=== PATIENT | female | born 1980 | race Caucasian/White ===

== ENCOUNTER 2019-09-09 18:54 | Inpatient (IN) | payer OTHER, SELFPAY ==
[~2019-09-09] VITALS: Ht 162.6 cm; Wt 50.0 kg
[2019-09-09 20:02] LABS: HEMATOCRIT 38.4 % (36.0-47.0); HEMOGLOBIN 12.6 g/dl (12.0-15.5); MEAN CORPUSCULAR HEMOGLOBIN 29.9 pg (27.0-33.0); MEAN CORPUSCULAR HGB CONC 32.8 g/dl (32.0-36.5); PLATELET COUNT, AUTOMATED 110 10^3/uL (150-450); RED BLOOD COUNT 4.22 10^6/uL (4.00-5.40); WHITE BLOOD COUNT 6.1 10^3/uL (4.0-10.0)
[2019-09-09 20:25] LABS: HCG, SERUM QUALITATIVE NEGATIVE (NEGATIVE)
[2019-09-09 20:37] LABS: ACETAMINOPHEN LEVEL < 2.0 UG/ML (10.0-30.0); ALBUMIN 4.2 GM/DL (3.2-5.2); ALT/SGPT 23 U/L (12-78); BILIRUBIN,DIRECT 0.2 MG/DL (0.0-0.2); BILIRUBIN,TOTAL 0.5 MG/DL (0.2-1.0); BLOOD UREA NITROGEN 17 MG/DL (7-18); CALCIUM LEVEL 9.4 MG/DL (8.5-10.1); CARBON DIOXIDE LEVEL 30 MEQ/L (21-32); CHLORIDE LEVEL 106 MEQ/L (98-107); CREATININE FOR GFR 0.77 MG/DL (0.55-1.30); ETHYL ALCOHOL (ETHANOL) < 0.003 % (0.000-0.010); GLOMERULAR FILTRATION RATE > 60.0 (>60); GLUCOSE, FASTING 97 MG/DL (70-100); POTASSIUM SERUM 3.7 MEQ/L (3.5-5.1); SALICYLATE LEVEL 4.4 MG/DL (5.0-30.0); SODIUM LEVEL 140 MEQ/L (136-145); TOTAL PROTEIN 7.5 GM/DL (6.4-8.2)
[2019-09-09 21:01] LABS: AMPHETAMINES LEVEL URINE NEGATIVE (NEGATIVE); BARBITURATES URINE NEGATIVE (NEGATIVE); BENZODIAZEPINES URINE NEGATIVE (NEGATIVE); CANNABINOIDS URINE POSITIVE (NEGATIVE); COCAINE METABOLITE URINE NEGATIVE (NEGATIVE); METHADONE URINE NEGATIVE (NEGATIVE); OPIATES URINE NEGATIVE (NEGATIVE); PHENCYCLIDINE URINE NEGATIVE (NEGATIVE)
[2019-09-09] MEDS ORDERED: MAALOX 30 ML SUSP *UDC PO PRN (22:00)
[2019-09-09] MEDS ORDERED: ACETAMINOPHEN TAB 650MG DOSE (2X325MG) PO PRN (22:00)
[2019-09-09] MEDS ORDERED: MOM 30ML SUSPENSION UDC PO PRN (22:00)
[2019-09-09 23:23] VITALS: BP 120/75
[2019-09-10] MEDS: PALIPERIDONE 3 MG ER TAB (INVEGA) PO SCH ×4 (08:28→23:55)
--- NOTE | 2019-09-10 14:36 | HPEPDOC ---
General Date of Admission September 09, 2019 at 21:55 Date of Service: September 10, 2019 Chief Complaint The patient is a 38-year-old female admitted with a reason for visit of Unspecified Psychotic Disorder. Source: Patient Exam Limitations: No limitations Timing/Duration: 24 hours Severity: Mild, Moderate History of Present Illness Patient is 38 years old female w past medical history of anxiety and depression, who was admitted in the hospital with depression. She denied any cardiovascular problem, breathing problem, GI problem or dysuria. She denies fever, chills, nausea, vomiting, shortness of breath, palpit ations, diarrhea or dysuria Home Medications No Active Prescriptions or Reported Meds Allergies Coded Allergies: No Known Allergies (Verified Allergy, Unknown, 09/09/19) Past Medical History Medical History Depression Family History Mother from alcoholism Social History * Smoker: current smoker Alcohol: Denies Drugs: denies A-FIB/CHADSVASC A-FIB History Current/History of A-Fib/PAF?: No Current PO Anticoag Therapy: No Review of Systems Constitutional: Denies: Chills Eyes: Denies: Pain, Vision change ENT: Denies: Head Aches Skin: Denies: Rash, Lesions Pulmonary: Denies: Dyspnea, Cough Cardiovascular: Denies: Chest Pain Gastrointestinal: Denies: Nausea, Vomiting Genitourinary: Denies: Dysuria, Frequency Endocrine: Denies: Polydipsia Musculoskeletal: Denies: Neck Pain Neurological: Denies: Weakness Psych: Reports: Depression Physical Examination General Exam: Positive: Alert Eye Exam: Positive: PERRLA ENT Exam: Positive: Atraumatic Neck Exam: Positive: Supple; Negative: JVD Chest Exam: Positive: Clear to auscultation Heart Exam: Positive: Rate Normal Telemetry: Positive: No significant arrhythmia Abdomen Exam: Positive: Normal bowel sounds Extremity Exam: Negative: Clubbing, Cyanosis Skin Exam: Positive: Nl turgor and temperature Neuro Exam: Positive: Normal Gait Psych Exam: Positive: Oriented x 3 Vital Signs Vital Signs Date Time Temp Pulse Resp B/P (MAP) Pulse Ox O2 Delivery O2 Flow Rate FiO2 09/10/19 08:54 Room Air 09/09/19 23:23 99.6 72 16 120/75 (90) 99 Laboratory Data Labs 24H Laboratory Tests 2 09/09/19 19:20: Urine Opiates Screen NEGATIVE, Urine Methadone Screen NEGATIVE, Urine Barbiturates Screen NEGATIVE, Urine Phencyclidine Screen NEGATIVE, Urine Amphetamines Screen NEGATIVE, Urine Benzodiazepines Screen NEGATIVE, Urine Cocaine Metabolite Screen NEGATIVE, Urine Cannabinoids Screen POSITIVEH 09/09/19 19:50: Nucleated Red Blood Cells % (auto) 0.0, Anion Gap 4L, Glomerular Filtration Rate > 60.0, Calcium Level 9.4, Total Bilirubin 0.5, Direct Bilirubin 0.2, Aspartate Amino Transf (AST/SGOT) 36, Alanine Aminotransferase (ALT/SGPT) 23, Alkaline Phosphatase 45, Total Protein 7.5, Albumin 4.2, Albumin/Globulin Ratio 1.3, Thyroid Stimulating Hormone (TSH) 1.020, Human Chorionic Gonadotropin, Qual NEGATIVE, Salicylates Level 4.4L, Acetaminophen Level < 2.0L, Ethyl Alcohol Level < 0.003 CBC/BMP Laboratory Tests 09/09/19 19:50 Assessment/Plan Patient is 38 years old female w past medical history of anxiety and depression, who was admitted in the hospital with depression. She denied any cardiovascular problem, breathing problem, GI problem or dysuria. She denies fever, chills, nausea, vomiting, shortness of breath, palpitations, diarrhea or dysuria Problems (1) Depression Status: Acute Problem Text: will defer treatment to psych team Plan / VTE VTE Prophylaxis Ordered?: No VTE Exclusion Mechanical Proph: Low Risk for VTE KASHIF SOTO DO September 10, 2019 14:36
[2019-09-10 16:37] VITALS: BP 125/69
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
[2019-09-10] MEDS: OLANZapine ORAL DISINTEGRATING TAB 5MG PO PRN (22:31)
[2019-09-11] MEDS: PALIPERIDONE 3 MG ER TAB (INVEGA) PO SCH ×2 (09:00→20:27)
--- NOTE | 2019-09-11 17:05 | MHIPNPDOC ---
[facility] Progress Note Progress Note DATE OF SERVICE: 09/11/19 HISTORY: HISTORY OF THE PRESENT ILLNESS: Patient is a 38 -year-old , female, who as per ED report: "Reason for Referral Pt was brought to the ED by police on a 9.41 after stating to police that she did not care if she did not wake up in the morning. Chief Complaint Pt states that the police brought her to the ED because "I talk too much & I make them uneasy." She states that "I was trying to go to multiple locations at the same time." She states "This reality is wrong. It's like a game show or a talk show. I need to get back to the right reality." When asked if she has SI she states that she wants to be "the fireworks or the clouds." She states that she does not care if she does not wake up. When asked about whether or not she had a plan to kill herself she stated that she has thought about trying to stab herself or cut herself. She states that she does not remember whether or not she has ever attempted suicide. She states that she self-harms by picking at her skin. Pt denies HI. She denies both AH & VH, but several times states "Lots of people tell me they are out & they say it like every twenty minutes & I just want them to stop." Pt states "I feel clouded & indecisive." Pt c/o depressed mood, anxiety, hopelessness & helplessness, poor concentration, decreased energy levels, & poor appetite. Pt states that she has been in [place] for a couple of months. She reports being in [place] prior to coming to [place]. She states that her used to be in the but she is not sure whether or not they are still . Pt denies any hx of mental health admissions. She does not currently have OP tx. She states she has never been dx with any mental health px & is not on any psych meds. She denies alcohol use. She reports occasional MJ use & her tox screen was positive for cannabis." VITAL SIGNS: See below. NEW TEST RESULTS: See below. CURRENT MEDICATIONS: See below. MENTAL STATUS EXAMINATION: General Appearance: The patient was seen wearing hospital scrubs. Hygiene is good. Grooming was OK. Build: average Demeanor: less guarded, more cooperative Eye Contact: avoidant, poor Activity: anxious Behavior: more cooperative than yesterday, less restless, less fidgety Speech: Spontaneous, normal r/t/v Affect: labile, anxious Thought Process: Circumstantial at times. Thought Content (Delusions): Paranoia Thought Content (Other): preoccupied, guarded, appears paranoid Thought Content (Aggressive): none reported Perception (Hallucinations): none reported Perception (Other): none reported Cognition (Impairment of): She says her memory is pretty bad, she says she can't remember phone numbers or any information from other persons that would have been close to her Oriented: Awake, Alert Insight: poor Judgment: Poor Psychosis: Denies Diagnoses 1. Bipolar disorder 2. marijuana use disorder ASSESSMENT: The patient is less irritable today but she is still labile. She mentioned, during our conversation today, that she had been the one who had l ied, who had used drugs, who had prostituted herself, who had caused other people pain, who had stolen....... When I asked her if that is what she really thinks of herself she repplied " I don't know, I don't know anymore". Yesterday she mentioned to one of our staff Nurses that she recived messages that she was supposed to deliver to others after she asked her Nurse if she believed in Mediums. The night of her admission she told the fire crew worker at the ED that "her sources were telling her something". She is psychotic and is confused. S MANAGEMENT PLAN: Continue current treatment plan, she took one of her Invega tablets last night and she didn't like the fact that it made her sleepy but she is less labile today. TIME SPENT: 15 minutes. Vital Signs Vital Signs Date Time Temp Pulse Resp B/P (MAP) Pulse Ox O2 Delivery O2 Flow Rate FiO2 09/11/19 11:40 Room Air 09/10/19 16:37 98.7 73 16 125/69 (87) 09/09/19 23:23 99 Current Medications Current Medications Medications (Trade) Dose Ordered Sig/Ormina Route PRN Reason Start Time Stop Time Status Last Admin Dose Admin Acetaminophen (Tylenol Tab) 650 mg Q6HP PRN PO HEADACHE or DISCOMFORT 09/09/19 22:00 Al Hydrox/Mg Hydrox/Simethicone (Mylanta) 30 ml Q4HP PRN PO HEARTBURN/INDIGESTION 09/09/19 22:00 Home Med (Med Rec Complete!) ASDIRECTED XX 09/09/19 21:45 09/09/19 21:38 DC Magnesium Hydroxide (Milk Of Magnesia) 30 ml DAILYPRN PRN PO CONSTIPATION 09/09/19 22:00 Olanzapine (ZyPREXA ZYDIS) 5 mg Q6HP PRN PO AGITATION 09/09/19 22:00 09/10/19 22:31 Paliperidone (Invega) 3 mg BID PO 09/10/19 09:00 09/10/19 23:55 Trazodone HCl (Desyrel) 50 mg QHSP PRN PO INSOMNIA 09/09/19 22:00 Allergies Coded Allergies: No Known Allergies (Verified Allergy, Unknown, 09/09/19) KELVIN RAMIREZ MD September 11, 2019 12:12
[2019-09-11 18:00] VITALS: BP 127/57
[2019-09-12] MEDS: PALIPERIDONE 3 MG ER TAB (INVEGA) PO SCH (09:00)
--- NOTE | 2019-09-12 09:25 | MHIPNPDOC ---
[facility] Progress Note Progress Note 38-year-old woman with significant paranoia has followed up today. She generally spends the majority of the discussion quite paranoid, she is quite guarded and does not discuss much. She is had multiple behavioral problems attempting to smash various objects and escape. She is still quite distorted. Vital Signs Vital Signs Date Time Temp Pulse Resp B/P (MAP) Pulse Ox O2 Delivery O2 Flow Rate FiO2 09/11/19 18:00 99.8 97 16 127/57 (80) 09/11/19 11:40 Room Air 09/09/19 23:23 99 Vital Signs Date Time Temp Pulse Resp B/P (MAP) Pulse Ox O2 Delivery O2 Flow Rate FiO2 09/11/19 18:00 99.8 97 16 127/57 (80) 09/11/19 11:40 Room Air 09/09/19 23:23 99 Current Medications Current Medications Medications (Trade) Dose Ordered Sig/Romina Route PRN Reason Start Time Stop Time Status Last Admin Dose Admin Acetaminophen (Tylenol Tab) 650 mg Q6HP PRN PO HEADACHE or DISCOMFORT 09/09/19 22:00 Al Hydrox/Mg Hydrox/Simethicone (Mylanta) 30 ml Q4HP PRN PO HEARTBURN/INDIGESTION 09/09/19 22:00 Home Med (Med Rec Complete!) ASDIRECTED XX 09/09/19 21:45 09/09/19 21:38 DC Magnesium Hydroxide (Milk Of Magnesia) 30 ml DAILYPRN PRN PO CONSTIPATION 09/09/19 22:00 Olanzapine (ZyPREXA ZYDIS) 5 mg Q6HP PRN PO AGITATION 09/09/19 22:00 09/10/19 22:31 Paliperidone (Invega) 3 mg BID PO 09/10/19 09:00 09/10/19 23:55 Trazodone HCl (Desyrel) 50 mg QHSP PRN PO INSOMNIA 09/09/19 22:00 Allergies Coded Allergies: No Known Allergies (Verified Allergy, Unknown, 09/09/19) Review of Systems General: Reports: ROS Unobtainable Mental Status Examination General Appearance: disheveled Build: thin Demeanor: hostile Eye Contact: avoidant Activity: hostile Behavior: uncooperative Speech: rapid Mood: irritable Affect: labile Thought Process: circumstantial Insight: poor Judgment: Poor Psychosis: Psychotic Perceptions Assessment 38-year-old woman with a history of no known psychiatric consistent presents in a likely mixed manic state, she is pre-contemplative on taking medications but still quite distorted and will need further treatment. Potentially over her objection. Problem List Problems: (1) Bipolar 1 disorder, mixed, severe Permanent Comment: Confirmed manic episode Last Edited By: Cherelle Ayala DO on September 12, 2019 12:28 Onset Date: ~ 09/09/2019 Status: Acute Response to Treatment: Worse Discussed With: Nurse, Patient Problem Text: Will change patient's medication from paliperidone to Zyprexa 5 mg nightly, as insurance is unlikely to continue this medication when she leaves. (2) Cannabis abuse Status: Chronic Problem Text: Unclear as to whether clinically relevant at this time.Potential for intoxication related symptoms, but patient's to distorted to accurately gauge. Medications No Active Prescriptions or Reported Meds CHERELLE AYALA DO September 12, 2019 09:25
[2019-09-12 18:00] VITALS: BP 135/63
[2019-09-12] MEDS: traZODone 50 MG TAB PO PRN (20:09)
[2019-09-12] MEDS ORDERED: diphenhydrAMINE 50MG CAP PO ONE (20:15)
[2019-09-12] MEDS ORDERED: LORazepam 2 MG TAB PO ONE (20:15)
[2019-09-12] MEDS ORDERED: OLANZapine 5 MG TAB PO SCH (21:00)
[2019-09-13 06:12] VITALS: BP 107/63
--- NOTE | 2019-09-13 09:05 | MHIPNPDOC ---
[facility] Progress Note Progress Note The patient was seen on 09/13/19. 38-year-old woman with a history of bipolar disorder presents for follow-up, she is been quite irritated and agitated last night, thrashing around requiring as need medication in order to calm herself. She still quite paranoid today unable to appreciate anything of her situation continually asking to go stating that we are "denying her her freedoms". No other meaningful information is gleaned from the interview. Vital Signs Vital Signs Date Time Temp Pulse Resp B/P (MAP) Pulse Ox O2 Delivery O2 Flow Rate FiO2 09/13/19 06:12 96.9 83 12 107/63 (78) 09/12/19 13:13 Room Air 09/09/19 23:23 99 Current Medications Current Medications Medications (Trade) Dose Ordered Sig/Romina Route PRN Reason Start Time Stop Time Status Last Admin Dose Admin Acetaminophen (Tylenol Tab) 650 mg Q6HP PRN PO HEADACHE or DISCOMFORT 09/09/19 22:00 Al Hydrox/Mg Hydrox/Simethicone (Mylanta) 30 ml Q4HP PRN PO HEARTBURN/INDIGESTION 09/09/19 22:00 Home Med (Med Rec Complete!) ASDIRECTED XX 09/09/19 21:45 09/09/19 21:38 DC Magnesium Hydroxide (Milk Of Magnesia) 30 ml DAILYPRN PRN PO CONSTIPATION 09/09/19 22:00 Olanzapine (ZyPREXA ZYDIS) 5 mg Q6HP PRN PO AGITATION 09/09/19 22:00 09/10/19 22:31 Olanzapine (ZyPREXA) 5 mg QHS PO 09/12/19 21:00 09/12/19 20:09 Paliperidone (Invega) 3 mg BID PO 09/10/19 09:00 09/12/19 10:25 DC 09/10/19 23:55 Trazodone HCl (Desyrel) 50 mg QHSP PRN PO INSOMNIA 09/09/19 22:00 09/12/19 20:09 Allergies Coded Allergies: No Known Allergies (Verified Allergy, Unknown, 09/09/19) Review of Systems Review of Systems General: Reports: ROS Unobtainable Mental Status Examination General Appearance: unkempt Build: thin Demeanor: hostile Eye Contact: intense Activity: agitated Behavior: uncooperative Speech: pressured Mood: angry Affect: labile Thought Process: circumstantial Thought Content (Delusions): persecutory Thought Content (Aggressive): none reported Cognition(Intelligence Est.): average Oriented: Awake, Alert Insight: poor Judgment: Poor Psychosis: Psychotic Perceptions Assessment 38-year-old woman with a history of bipolar disorder presents, she does not appear to be making significant progress on the Zyprexa 5 mg and will need increased medication in order to be safe. Problem List Problems: (1) Bipolar 1 disorder, mixed, severe Permanent Comment: Confirmed manic episode Last Edited By: Cherelle Ayala DO on September 12, 2019 12:28 Onset Date: ~ 09/09/2019 Status: Acute Response to Treatment: Worse Discussed With: Nurse, Patient Problem Text: Increase Zyprexa 10 mg nightly (2) Cannabis abuse Status: Chronic Problem Text: Unclear as to whether clinically relevant at this time.Potential for intoxication related symptoms, but patient's to distorted to accurately gauge. Medications No Active Prescriptions or Reported Meds CHERELLE AYALA DO September 13, 2019 09:05
[2019-09-13 18:47] VITALS: BP 112/76
[2019-09-13] MEDS: traZODone 50 MG TAB PO PRN (20:27)
[2019-09-13] MEDS: OLANZapine 5 MG TAB PO SCH (20:27)
[2019-09-14 06:11] VITALS: BP 106/76
--- NOTE | 2019-09-14 09:04 | MHIPNPDOC ---
[facility] Progress Note Progress Note The patient was seen on 09/15/19. The patient a 38-year-old woman is seen in follow-up today, she is still upset although much more redirect double and stable overnight. She reports that she still wants to go but is having trouble deciding where she wants ago and has had difficulty getting in contact with the managers previously staying with. She reports that she is doing better and is still quite eager to be discharged. She is had no notable problems overnight and although being irritable at times has generally been in behavioral control. She generally focuses entirely on discharge being upset that she is still here. Vital Signs Vital Signs Date Time Temp Pulse Resp B/P (MAP) Pulse Ox O2 Delivery O2 Flow Rate FiO2 09/14/19 06:11 98.4 69 14 106/76 (86) Room Air 09/13/19 18:47 96 Current Medications Current Medications Medications (Trade) Dose Ordered Sig/Romina Route PRN Reason Start Time Stop Time Status Last Admin Dose Admin Acetaminophen (Tylenol Tab) 650 mg Q6HP PRN PO HEADACHE or DISCOMFORT 09/09/19 22:00 Al Hydrox/Mg Hydrox/Simethicone (Mylanta) 30 ml Q4HP PRN PO HEARTBURN/INDIGESTION 09/09/19 22:00 Home Med (Med Rec Complete!) ASDIRECTED XX 09/09/19 21:45 09/09/19 21:38 DC Magnesium Hydroxide (Milk Of Magnesia) 30 ml DAILYPRN PRN PO CONSTIPATION 09/09/19 22:00 Olanzapine (ZyPREXA ZYDIS) 5 mg Q6HP PRN PO AGITATION 09/09/19 22:00 09/10/19 22:31 Olanzapine (ZyPREXA) 5 mg QHS PO 09/12/19 21:00 09/13/19 13:49 DC 09/12/19 20:09 Olanzapine (ZyPREXA) 10 mg QHS PO 09/13/19 21:00 09/13/19 20:27 Paliperidone (Invega) 3 mg BID PO 09/10/19 09:00 09/12/19 10:25 DC 09/10/19 23:55 Trazodone HCl (Desyrel) 50 mg QHSP PRN PO INSOMNIA 09/09/19 22:00 09/13/19 20:27 Allergies Coded Allergies: No Known Allergies (Verified Allergy, Unknown, 09/09/19) Review of Systems Review of Systems General: Reports: ROS Unobtainable ("no problems") Mental Status Examination General Appearance: well groomed Build: average Demeanor: mistrustful Eye Contact: average Activity: average Behavior: resistant Speech: clear Mood: irritable Mood "fine" Affect: full Thought Process: logical/linear Thought Content (Delusions): denies SI, HI, AVH Thought Content (Other): none reported Thought Content (Aggressive): none reported Perception (Hallucinations): none reported Perception (Other): none reported Cognition (Impairment of): none reported Cognition(Intelligence Est.): average Oriented: Awake, Alert, Oriented times three Insight: improving Judgment: Improving Psychosis: Denies Assessment 38-year-old woman with likely bipolar disorder, appears to be making some progress on Zyprexa with few problems in terms of side effects. She is making good progress and will likely not meet involuntary criteria. If she is able to come up with a safe plan. She generally although irritable, is likely baseline upset about her current admission. Ideally by creating a safe as possible discharge plan she will be able to be discharged tomorrow. Her irritability at this time is not coming with a behavioral problems further demonstrating her improvement Problem List Problems: (1) Bipolar 1 disorder, mixed, severe Permanent Comment: Confirmed manic episode Last Edited By: Cherelle Ayala DO on September 12, 2019 12:28 Onset Date: ~ 09/09/2019 Status: Acute Response to Treatment: Improving Discussed With: Nurse, Patient Problem Specific Plan: Monitor Clinically Problem Text: Continue Zyprexa 10 mg nightly (2) Cannabis abuse Status: Chronic Response to Treatment: Controlled Problem Specific Plan: Monitor Clinically Medications Scheduled Olanzapine (Olanzapine) 5 Mg Tablet, 10 MG PO QHS for mood CHERELLE AYALA DO September 14, 2019 09:04
[2019-09-14] MEDS: OLANZapine ORAL DISINTEGRATING TAB 5MG PO PRN (13:32)
[2019-09-14 16:58] VITALS: BP 128/83
[2019-09-14] MEDS: traZODone 50 MG TAB PO PRN (20:47)
[2019-09-14] MEDS: OLANZapine 5 MG TAB PO SCH (20:47)
[2019-09-15 05:51] VITALS: BP 121/68
[2019-09-15] MEDS ORDERED: OLAN5TAB PO (11:03)
--- NOTE | 2019-09-19 08:41 | MHDSPDOC ---
[facility] Discharge Summary Discharge Summary DATE OF ADMISSION: September 09, 2019 at 21:55 DATE OF DISCHARGE: September 15, 2019 at 13:45 DISCHARGE DIAGNOSES: 1. Bipolar disorder, type I, in remission. 2. Cannabis use disorder. REASON FOR ADMISSION: 38-year-old woman was admitted psychotic and manic after being found wandering the street. CONSULTANTS INVOLVED: none TREATMENT AND PROGRESS ON THE UNIT :. The patient was initially manage the unit and tried on paliperidone, she refused to take medication for the majority of her stay. She was fairly disinhibited and attempted to jump out a window during her 1st few evenings. Eventually when she was seen she was tried on Zyprexa increased to 10 mg nightly with positive effects. After a very protracted amount of time. The patient began to resolve became more approachable more reasonable and logical. She still appeared to be defiant, but this appeared to be a characterological trait rather than a state from her bipolar disorder. Collateral information confirms that at baseline. 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 She did well in the unit and eventually became will enough in order to plan for her discharge. DISCHARGE ASSESSMENT: 38-year-old young woman with a history of likely bipolar disorder presents and is treated with appropriate agent. The patient at the time of discharge did not meet criteria for involuntary admission/extension due to having a improved mental status exam, fair insight into the situation, They are engaged in the discharge process, as well as being friendly and amenable in behavioral control and havent been engaging in any observed concerning behavior or ideation recently. They decline voluntary extension/admission at this time and must be discharged in good lópez, as Im unable to make a case for holding the patient against their will. They may have historical risk factors of admissions and other interactions with psychiatry however, those are not modifiable from a clinical perspective. The patient will need to be discharged in good lópez. MENTAL STATUS EXAMINATION ON DISCHARGE: General: Well dressed with good hygiene Speech: Spontaneous and fluid Thought processes: Linear and logical Thought content: Future orientated Abstract reasoning, and computation: Intact Description of associations: Intact Description of abnormal or psychotic thoughts:Denies any suicidal or homicidal ideation. Denies any auditory or visual hallucinations. Does not appear to be responding to internal stimuli. Does not appear to be endorsing any bizarre or paranoid ideation. Judgment: fair Insight: fair Orientation: Alert and orientated 3 Recent and remote memory: Intact Attention span and concentration: Intact Fund of knowledge: Adequate Mood: "okay" Affect: Euthymic with a full range PLAN/FOLLOWUP ARRANGEMENTS: Follow up arranged locally The amount of time spent in the coordination of care for this patient was approximately 45 minutes. Vital Signs/I&Os Vital Signs Date Time Temp Pulse Resp B/P (MAP) Pulse Ox O2 Delivery O2 Flow Rate FiO2 09/15/19 05:51 97.8 74 16 121/68 (85) 98 Room Air Medications Scheduled Olanzapine (Olanzapine) 5 Mg Tablet, 10 MG PO QHS for mood for 14 Days, #14 Allergies Coded Allergies: No Known Allergies (Verified Allergy, Unknown, 09/09/19) CHERELLE SHAFFER DO Sep 19, 2019 08:41
--- NOTE | 2019-09-19 08:41 | MHIPNPDOC ---
[facility] Progress Note Progress Note DATE OF SERVICE: 09/19/19 HISTORY: . VITAL SIGNS: See below. NEW TEST RESULTS: . CURRENT MEDICATIONS: See below. MENTAL STATUS EXAMINATION: Patient is a -year old female, who is . Speech: Is . Language skills are . Thought processes including: . Thought content: . Abstract reasoning, and computation: . Description of assoc iations: . Description of abnormal or psychotic thoughts: . Judgment: . Insight: [very limited, good, fair. poor]. Orientation: . Recent and remote memory: . Attention span and concentration: . Language: . Fund of knowledge: . Mood: . Affect: . DIAGNOSES: 1. . 2. . 3. . ASSESSMENT: MANAGEMENT PLAN: . TIME SPENT: minutes. Vital Signs Vital Signs Date Time Temp Pulse Resp B/P (MAP) Pulse Ox O2 Delivery O2 Flow Rate FiO2 09/15/19 05:51 97.8 74 16 121/68 (85) 98 Room Air Current Medications Current Medications Medications (Trade) Dose Ordered Sig/Romina Route PRN Reason Start Time Stop Time Status Last Admin Dose Admin Acetaminophen (Tylenol Tab) 650 mg Q6HP PRN PO HEADACHE or DISCOMFORT 09/09/19 22:00 09/15/19 13:51 DC Al Hydrox/Mg Hydrox/Simethicone (Mylanta) 30 ml Q4HP PRN PO HEARTBURN/INDIGESTION 09/09/19 22:00 09/15/19 13:51 DC Home Med (Med Rec Complete!) ASDIRECTED XX 09/09/19 21:45 09/09/19 21:38 DC Magnesium Hydroxide (Milk Of Magnesia) 30 ml DAILYPRN PRN PO CONSTIPATION 09/09/19 22:00 09/15/19 13:51 DC Olanzapine (ZyPREXA ZYDIS) 5 mg Q6HP PRN PO AGITATION 09/09/19 22:00 09/15/19 13:51 DC 09/14/19 13:32 Olanzapine (ZyPREXA) 5 mg QHS PO 09/12/19 21:00 09/13/19 13:49 DC 09/12/19 20:09 Olanzapine (ZyPREXA) 10 mg QHS PO 09/13/19 21:00 09/15/19 13:51 DC 09/14/19 20:47 Paliperidone (Invega) 3 mg BID PO 09/10/19 09:00 09/12/19 10:25 DC 09/10/19 23:55 Trazodone HCl (Desyrel) 50 mg QHSP PRN PO INSOMNIA 09/09/19 22:00 09/15/19 13:51 DC 09/14/19 20:47 Allergies Coded Allergies: No Known Allergies (Verified Allergy, Unknown, 09/09/19) CHERELLE SHAFFER 1, 2020 08:41
== END 2019-09-15 13:45 | disposition home or self-care (01) | DRG 753 ==
LOC: M ED 18:54 → M ED INP 21:55 → M PSY 22:55
PROVIDERS: ADMIT Psychiatry & Neurology Psychiatry; ATTEND Psychiatry & Neurology Addiction Medicine
DX: F31.9 Bipolar disorder, unspecified (principal); F12.90 Cannabis use, unspecified, uncomplicated